=== PATIENT | male | born 1965 ===

== ENCOUNTER 2016-12-11 19:08 | Emergency (ER) | payer SELFPAY ==
[2016-12-11 19:42] VITALS: BP 122/83; PULSE 86; RESP 16; TEMP 98.4; O2SAT 95
--- NOTE | 2016-12-11 20:28 | C.PDOC ---
History Of Present Illness 51 year old male who presents to the ER seeking detox from ETOH. Crisis saw patient prior to my evaluation and informed patient that no beds are available. Patient left ER prior to my evaluation. Time Seen by Provider: 12/11/16 20:27 Chief Complaint (Nursing): Psychiatric Evaluation History Per: Other (Crisis) History/Exam Limitations: no limitations Onset/Duration Of Symptoms: Hrs Current Symptoms Are (Timing): Still Present Suicide/Self Injury Attempted (Context): None Modifying Factor(s): Alcohol Involuntary Hold By: None Recent travel outside of the [place]: No Past Medical History Reviewed: Historical Data, Nursing Documentation, Vital Signs Vital Signs: Last Vital Signs Temp 98.4 F 12/11/16 19:40 Pulse 86 12/11/16 19:40 Resp 16 12/11/16 19:40 BP 122/83 12/11/16 19:40 Pulse Ox 95 12/11/16 20:28 - Medical History PMH: No Chronic Diseases Surgical History: No Surg Hx Family History: States: Unknown Family Hx - Social History Hx Alcohol Use: Yes Hx Substance Use: No - Immunization History Hx Tetanus Toxoid Vaccination: No Hx Influenza Vaccination: No Hx Pneumococcal Vaccination: No Review Of Systems Review Of Systems: ROS cannot be obtained secondary to pt's inabilty to answer questions. Physical Exam - Physical Exam Additional Physical Exam Comments: Patient left prior to physical exam. ED Course And Treatment O2 Sat by Pulse Oximetry: 95 (Room air) Pulse Ox Interpretation: Normal Medical Decision Making Medical Decision Making: d/w Crisis, no detox beds available Crisis spoke w pt, will f/u as opt. Disposition Doctor Will See Patient In The: Office Counseled Patient/Family Regarding: Studies Performed, Diagnosis - Disposition Referrals: [facility] [Outside] [facility] [Outside] [facility] [Outside] [facility] [Outside] Disposition: HOME/ ROUTINE Disposition Time: 20:28 Condition: GOOD Additional Instructions: continue to follow-up as outpatient for detox programs/availability. Instructions: Abuse of Alcohol (ED) Forms: [facility] (Puerto Rican) - Clinical Impression Clinical Impression: Alcohol abuse - Scribe Statement The provider has reviewed the documentation as recorded by the Scribe Jerald Phan All medical record entries made by the Scribe were at my direction and personally dictated by me. I have reviewed the chart and agree that the record accurately reflects my personal performance of the history, physical exam, medical decision making, and the department course for this patient. I have also personally directed, reviewed, and agree with the discharge instructions and disposition.
== END 2016-12-11 20:32 | disposition home or self-care (01) ==
LOC: C.ER 19:08
DX: F10.10 Alcohol abuse, uncomplicated (principal)

== ENCOUNTER 2017-10-04 10:29 | Inpatient (IN) | payer MEDICAID, OTHER ==
[2017-10-04 10:33] VITALS: BMI 26.6
[2017-10-04 12:08] LABS: ALB/GLOB RATIO 1.4 (1.0-2.1); ALBUMIN 5.5 g/dL (3.5-5.0); ALT/SGPT 188 U/L (21-72); AST/SGOT 260 U/L (17-59); BLOOD UREA NITROGEN 8 mg/dL (9-20); CALCIUM 9.6 mg/dl (8.6-10.4); GFR AFRICAN-AMERICAN > 60; GFR NON-AFRICAN AMERICAN > 60
--- NOTE | 2017-10-04 12:16 | C.PDOC ---
History Of Present Illness 52 y/o male with a PMHx of alcohol abuse presents to the ED requesting alcohol detox. He admits to drinking daily, but denies alcohol use today. Patient currently complains of mild tremors. Otherwise he denies fever, vomiting, SOB, abdominal pain, or other physical complaints. He denies suicidal or homicidal ideations. Time Seen by Provider: 10/04/17 11:00 Chief Complaint (Nursing): Substance Abuse History Per: Patient History/Exam Limitations: no limitations Onset/Duration Of Symptoms: Hrs Current Symptoms Are (Timing): Still Present Modifying Factor(s): Alcohol Severity: Moderate Past Medical History Reviewed: Historical Data, Nursing Documentation, Vital Signs Vital Signs: Last Vital Signs Temp 98.2 F 10/08/17 15:30 Pulse 99 H 10/08/17 15:30 Resp 18 10/08/17 15:30 BP 136/97 H 10/08/17 15:30 Pulse Ox 98 10/08/17 15:30 - Medical History PMH: No Chronic Diseases Other PMH: alcohol dependence Surgical History: No Surg Hx Family History: States: No Known Family Hx - Social History Hx Tobacco Use: No Hx Alcohol Use: Yes (beer) Hx Substance Use: No - Immunization History Hx Tetanus Toxoid Vaccination: No Hx Influenza Vaccination: No Hx Pneumococcal Vaccination: No Review Of Systems Constitutional: Negative for: Fever Cardiovascular: Negative for: Chest Pain, Palpitations Respiratory: Negative for: Cough, Shortness of Breath Gastrointestinal: Negative for: Nausea, Vomiting, Abdominal Pain, Diarrhea Skin: Negative for: Rash Psych: Positive for: Withdrawal (tremors). Negative for: Suicidal ideation, Other (alcohol abuse) Physical Exam - Physical Exam Appears: Well, Non-toxic, No Acute Distress Skin: Normal Color, Warm, Dry Eye(s): bilateral: Normal Inspection Oral Mucosa: Moist Neck: Supple Cardiovascular: Rhythm Regular Respiratory: Normal Breath Sounds, No Rales, No Rhonchi, No Wheezing Gastrointestinal/Abdominal: Normal Exam, Bowel Sounds, Soft, No Tenderness, No Distention Extremity: Normal ROM, No Calf Tenderness, No Deformity, Other (mild tremors B/ L UEs) Pulses: Left Dorsalis Pedis: Normal, Right Dorsalis Pedis: Normal Neurological/Psych: Oriented x3 ED Course And Treatment - Laboratory Results Result Diagrams: 10/08/17 11:29 10/08/17 11:29 O2 Sat by Pulse Oximetry: 95 (RA) Pulse Ox Interpretation: Normal Progress Note: Blood work, UA, UDS ordered and reviewed. Patient given PO Librium. 13:31- Patient accepted by Dr. Darnell for alcohol detox admission. Reevaluation Time: 13:15 Reassessment Condition: Improved (Patient resting comfortably, no current tremors noted. Medically cleared) Disposition - Disposition Disposition: HOSPITALIZED Disposition Time: 13:31 Condition: STABLE - Clinical Impression Clinical Impression: Alcohol use disorder, severe, dependence - Scribe Statement The provider has reviewed the documentation as recorded by the Scribe (Dagmar Sparrow) Provider Attestation: All medical record entries made by the Scribe were at my direction and personally dictated by me. I have reviewed the chart and agree that the record accurately reflects my personal performance of the history, physical exam, medical decision making, and the department course for this patient. I have also personally directed, reviewed, and agree with the discharge instructions and disposition. Decision To Admit - Pt Status Changed To: Hospital Disposition Of: Inpatient - Admit Certification Admit to Inpatient:: After my assessment, the patient will require hospitalization for at least two midnights. This is because of the severity of symptoms shown, intensity of services needed, and/or the medical risk in this patient being treated as an outpatient. - InPatient: Physician Admission Certification: I certify that this patient requires 2 or more midnights of care for the following reason:: see notes - . Bed Request Type: Detox Admitting Physician: Selena Darnell Patient Diagnosis: Alcohol use disorder, severe, dependence
[2017-10-04 12:20] LABS: URINE BILIRUBIN NEGATIVE (NEGATIVE); URINE BLOOD 1+ (NEGATIVE); URINE CLARITY Clear (Clear); URINE COLOR Straw (YELLOW); URINE GLUCOSE (UA) NORMAL (Normal); URINE LEUKOCYTE ESTERASE NEG Leu/uL (Negative); URINE PROTEIN NEGATIVE (NEGATIVE); URINE UROBILINOGEN NORMAL mg/dL (0.2-1.0)
[2017-10-04 12:27] LABS: BASO # 0.1 K/uL (0.0-0.2); BASO % 2.8 % (0.0-2.0); EOS # 0.1 K/uL (0.0-0.7); EOS % 2.8 % (0.0-4.0); HEMOGLOBIN 14.3 g/dL (12.0-18.0); LYMPH # 0.5 K/uL (1.0-4.3); LYMPH % 9.8 % (20.0-40.0); MEAN CELL VOLUME 100.6 fL (80.0-94.0); MEAN CORPUSCULAR HEMOGLOBIN 34.2 pg (27.0-31.0); MEAN PLATELET VOLUME 9.4 fL (7.2-11.7); MONO # 0.7 K/uL (0.0-0.8); MONO % 15.5 % (0.0-10.0); NEUT # 3.2 K/uL (1.8-7.0); NEUT % 69.1 % (50.0-75.0); NRBC % 0.1 % (0.0-2.0); RBC 4.18 Mil/uL (4.40-5.90); RED CELL DISTRIBUTION WIDTH 13.9 % (11.5-14.5); WHITE BLOOD COUNT 4.7 K/uL (4.8-10.8)
[2017-10-04 12:30] LABS: PLATELET COUNT 113 K/uL (130-400)
[2017-10-04 12:33] LABS: BARBITURATES, UR NEGATIVE (NEGATIVE); BENZODIAZEPINES, UR NEGATIVE (NEGATIVE); OPIATES, UR NEGATIVE (NEGATIVE); PHENCYCLIDINE, UR NEGATIVE (NEGATIVE)
[2017-10-04 13:14] LABS: BANDS 1 % (0-2); EOSINOPHIL 2 % (0-4); LYMPHOCYTE 11 % (20-40); MONOCYTE 16 % (0-10); NEUTROPHIL 70 % (50-75); PLATELET ESTIMATE SLIGHTLY DECREASED (NORMAL); TOTAL CELLS COUNTED 100
--- NOTE | 2017-10-04 14:01 | PCM.BM ---
<Bryon Webster - Last Filed: 10/04/17 14:00> Treatment Plan Problems - Problems identified on initial assessmt potential for alcohol withdrawal Date Initiated: 10/04/17 Time Initiated: 14:00 Status: Active Treatment assets and liabiliti Patient Assests: cognitively intact Patient Liabilities: substance abuse - Milieu Protocol Maintain good personal hygiene: daily Encourage regular showers, daily Remind patient to perform daily oral care, daily Assist patient to perform ADL's Maintain personal safety: every shift Educate patient to report safety concerns to staff, every shift Monitor environment for contraband/sharps Medication safety: Monitor for expected outcome, potential side effects: every shift, Assess barriers to learning: every shift, Assess readiness for medication education: every shift <Selena Darnell - Last Filed: 10/04/17 14:34> - Diagnosis (1) Alcohol use disorder, severe, dependence Status: Acute Interventions: 10/04/17 14:34 * Assess 7x/week regarding severity of withdrawal * Educate regarding risks, benefits, side effects and alternatives of medications * Use Motivational Interviewing for abstinence * Use CBT for relapse prevention * Medication management for withdrawal symptoms * Encourage medication assisted treatment *
[2017-10-04] MEDS: Multiple Vitamins Tab PO SCH ×2 (14:34→14:37)
--- NOTE | 2017-10-04 14:37 | PCM.PSYCH ---
Initial Psychiatric Evaluation - Initial Psychiatric Evaluation Type of Admission: Voluntary Legal Status: Capacity Chief Complaint (in patient's own words): "Alcohol" History of Present Illness and Precipitating Events: The pt is seen, chart reviewed and case discussed. He is a 52 y/o LM, living with adult daughter and . He is here for alcohol detox, however despite his obvious tremors and other withdrawal sxs and bad liver, he tries to minimize his use and says he only drinks 2-3 drinks. Yet, in ED, he admitted that he was drinking 5 of the 24 oz beers plus unknown amount of liquor. He drinks for many years, but no DTs or seizures. No other drugs No psych sxs No known medical hx No family psych hx Current Medications: Active Medications Generic Name Dose Route Start Last Admin Trade Name Freq PRN Reason Stop Dose Admin Clonidine HCl 0.1 mg 10/04/17 14:20 Catapres PO Q4H PRN Symptoms of alcohol withdrawl Folic Acid 1 mg 10/04/17 14:30 Folic Acid PO DAILY KYLER Gabapentin 100 mg 10/04/17 18:00 Neurontin PO TID KYLER Hydroxyzine HCl 25 mg 10/04/17 14:21 Atarax PO Q4H PRN Anxiety Ibuprofen 400 mg 10/04/17 14:21 Motrin Tab PO Q6H PRN Pain, moderate (4-7) Lorazepam 1 mg 10/04/17 14:20 Ativan PO Q4H PRN Symptoms of alcohol withdrawl Lorazepam 2 mg 10/04/17 15:00 Ativan PO 10/09/17 14:59 .TAPER KYLER Taper Multivitamins 1 tab 10/04/17 14:30 Hexavitamin PO DAILY KYLER Thiamine HCl 100 mg 10/04/17 14:30 Vitamin B1 Tab PO DAILY KYLER Trazodone HCl 50 mg 10/04/17 22:00 Desyrel PO HS PRN Insomnia Past Psychiatric History - Past Psychiatric History Previous Treatment History: None Pertinent Medical Hx (Current Medical&Sleep Prob, Allergies): Allergies Allergy/AdvReac Type Severity Reaction Status Date / Time No Known Allergies Allergy Verified 10/04/17 10:32 No Known Home Med 12/11/16 Review of Systems - Neurological Neurological: Tremor, Weakness - Psychiatric Psychiatric: Abnormal Sleep Pattern, Anxiety, Difficulty Concentrating. absent : Hallucinations, Homicidal Ideation, Paranoia, Suicidal Ideation Mental Status Examination - Personal Presentation Personal Presentation: Looks stated age - Affect Affect: Constricted - Motor Activity Motor Activity: Calm - Reliability in Providing Information Reliability in Providing Information: Good - Speech Speech: Organized - Mood Mood: Anxious - Formal Thought Process Formal Thought Process: No Impairment - Cognitive Functions Orientation: Person, Place, Situation, Time Sensorium: Alert Attention/Concentration: Easily distracted Estimate of Intelligence: Average Judgement: Intact, as evidence by: Insight regarding need for hospitalization Memory: Recent intact, as evidence by: Ability to recall events of the day, Remote intact, as evidenced by: Abilit to recall sig. life events - Risk Risk: Withdrawal, Diminished functioning - Strength & Assets Inventory Strength & Assets Inventory: Family support, Cooperative DSM 5 DX - DSM 5 DSM 5 Diagnosis: Alcohol withdrawal Alcohol use d/o- severe - Recommended/Plan of Treatment Treatment Recommendations and Plan of Treatment: Taper with ativan due to elevated LFTs Gabapentin for augmentation As needed medications All risks, benefits and alternatives of the meds discussed, and the pt agreed and understood. Attend groups and activities Supportive therapy and psychoeducation [place] for abstinence CBT for relapse prevention Encourage MAT Refer to rehab or IOP, and self-help groups 34 min Projected ELOS: 5-6 days Prognosis: good with treatment - Smoking Cessation Smoking Cessation Initiated: No Reason for not providing: non-smoker
[2017-10-05 08:37] LABS: ALB/GLOB RATIO 1.4 (1.0-2.1); ALT/SGPT 149 U/L (21-72); AST/SGOT 179 U/L (17-59); BLOOD UREA NITROGEN 11 mg/dL (9-20); CALCIUM 10.2 mg/dl (8.6-10.4); GFR AFRICAN-AMERICAN > 60; GFR NON-AFRICAN AMERICAN > 60
[2017-10-05] MEDS: Multiple Vitamins Tab PO SCH (10:31)
--- NOTE | 2017-10-05 13:54 | PCM.PYCHPN ---
Psychiatric Progress Note - Psychiatric Progress Note Patient seen today, length of contact: 16 min Patient Chief Complaint: "Tremors" Problems Identified/Issues Discussed: The pt is seen, chart reviewed, case discussed with staff. The pt is compliant with medications and reports no side-effects. Symptoms are improving but needs more time to stabilize. After care discussed, support and psychoeducation given. Medication Change: Yes (detox changes daily) Medical Record Reviewed: Yes Mental Status Examination - Cognitive Function Orientation: Person, Place, Situation, Time Memory: Intact Attention: WNL Concentration: Poor Association: WNL Fund of Knowledge: WNL - Mood Mood: Anxious - Affect Affect: Constricted - Speech Speech: Appropriate - Formal Thought Process Formal Thought Process: No Impairment - Suicidal Ideation Suicidal Ideation: No - Homicidal Ideation Homicidal Ideation: No Goal/Treatment Plan - Goal/Treatment Plan Need for Continued Stay: Discharge may exacerbated symptoms, Severe functional impairment Progress Toward Problem(s) and Goals/Treatment Plan: Taper with ativan due to elevated LFTs Gabapentin for augmentation As needed medications All risks, benefits and alternatives of the meds discussed, and the pt agreed and understood. Attend groups and activities Supportive therapy and psychoeducation [place] for abstinence CBT for relapse prevention Encourage MAT Refer to rehab or IOP, and self-help groups Estimated Date of D/C: 10/09/17
[2017-10-06] MEDS: Multiple Vitamins Tab PO SCH (09:24)
--- NOTE | 2017-10-06 17:19 | PCM.PYCHPN ---
Psychiatric Progress Note - Psychiatric Progress Note Patient seen today, length of contact: 15 minutes Patient Chief Complaint: I'm feeling better than before Problems Identified/Issues Discussed: Patient seen, chart reviewed, case discussed with the staff. Issues related to illness and treatment were discussed with the patient. Reported compliant with treatment with no adverse affects. Tolerating treatment very well. Patient reported feeling better. Aftercare discussed with the patient. Patient was awake alert oriented 3. At the time of evaluation, patient had no delusions, no auditory or visual hallucinations, no suicidal ideations or homicidal ideations. Medical Problems: None reported Diagnostic Results: Reviewed DSM 5 Symptoms Update: Improving with treatment Medication Change: No Medical Record Reviewed: Yes Mental Status Examination - Cognitive Function Orientation: Person, Place, Situation, Time Memory: Intact Attention: WNL Concentration: WNL Association: WNL Fund of Knowledge: [facility] Decription of patient's judgement and insights: Fair - Mood Mood: Anxious (Less than before) - Affect Affect: Other (Appropriate) - Speech Speech: Appropriate - Formal Thought Process Formal Thought Process: No Impairment Psychotic Thoughts and Behaviors: None - Suicidal Ideation Suicidal Ideation: No - Homicidal Ideation Homicidal Ideation: No Goal/Treatment Plan - Goal/Treatment Plan Need for Continued Stay: Remain at risks for inpatient hospitalization, Discharge may exacerbated symptoms, Severe functional impairment Progress Toward Problem(s) and Goals/Treatment Plan: Some improvement with treatment. Patient education. Supportive therapy. CBT for relapse prevention. [place] for abstinence. Continue treatment as before. Patient wants to go to [facility] for follow-up care after discharge from the hospital. Estimated Date of D/C: 10/09/17 - Smoking Cessation Smoking Cessation Initiated: No Reason for not providing: Doesn't smoke cigarettes
[2017-10-07 08:31] LABS: BASO # 0.1 K/uL (0.0-0.2); BASO % 2.6 % (0.0-2.0); EOS # 0.4 K/uL (0.0-0.7); EOS % 6.9 % (0.0-4.0); HEMOGLOBIN 13.8 g/dL (12.0-18.0); LYMPH % 18.5 % (20.0-40.0); MEAN CELL VOLUME 99.9 fL (80.0-94.0); MEAN CORPUSCULAR HEMOGLOBIN 34.1 pg (27.0-31.0); MEAN CORPUSCULAR HGB CONC 34.1 g/dL (33.0-37.0); MEAN PLATELET VOLUME 9.7 fL (7.2-11.7); MONO % 19.2 % (0.0-10.0); NEUT # 2.7 K/uL (1.8-7.0); NEUT % 52.8 % (50.0-75.0); NRBC % 0.1 % (0.0-2.0); RBC 4.06 Mil/uL (4.40-5.90); RED CELL DISTRIBUTION WIDTH 13.8 % (11.5-14.5); WHITE BLOOD COUNT 5.1 K/uL (4.8-10.8)
[2017-10-07 08:49] LABS: ALB/GLOB RATIO 1.5 (1.0-2.1); ALBUMIN 4.9 g/dL (3.5-5.0); ALT/SGPT 186 U/L (21-72); AST/SGOT 166 U/L (17-59); BLOOD UREA NITROGEN 11 mg/dL (9-20); CALCIUM 10.1 mg/dl (8.6-10.4); GFR AFRICAN-AMERICAN > 60; GFR NON-AFRICAN AMERICAN > 60
--- NOTE | 2017-10-07 09:31 | CP.PCM.CON ---
<Jimmy Glaser - Last Filed: 10/07/17 16:22> History of Present Illness - History of Present Illness History of Present Illness: Medicine Consult Note CC: ETOH withdrawal HPI: This 52 y/o male with a PMHx of ETOH abuse - presented to the ED on presents to the ED on 10/04/17 requesting alcohol detox. He admits to drinking daily, but denied alcohol use on that day. He complainted of mild tremors at that time, but otherwise denied any fever, vomiting, SOB, pain, or other complaints. He was not suicidal or homicidal. Medicine team was consulted on 10/07/17 due to morning halucination, where the patient thought he saw animals. Patient was seen in the detox unit, happily eating his breakfast. He conversed well with no slurring of his speech. Patient states that he feels better since being admitted, that his tremors were very severe upon presentation to the ED, and have now become very mild. He admits to mild nausea, but has not vomited in 1-2 days. He does report diarrhea, with last watery BM yesterday. Otherwise, he denies fever, chills, headache, chest pain, SOB, abdominal pain, constipation, LE swelling, or any additional acute complaints. He denies HI or SI. PMHx: ETOH abuse PSHx: none Meds: no home meds Allergies: NKDA FamHx: unknown SocHx: 5 x24oz beers every Sat/Sun for years; denies tobacco or illicit drug use ; lives with family; unemployed. PMD: Dr. Dejan Strong Review of Systems: -Gen: No fever, No chills, No headache, No lethargy, No weakness. -HEENT: No dizziness, No change in vision, No change in hearing, No sore throat , No dysphagia, No nasal congestion, No mucous. -Cardio: No chest pain, No palpitations, No lower extremity edema, No orthopnea. -Resp: No cough, No dyspnea, No hemoptysis, No wheezing, No pain on inspiration. -GI: No abdominal pain, +nausea, no vomiting, No diarrhea/constipation, No hematochezia, No hematemesis. -: No dysuria, No urinary freq, No incontinence, No hematuria, No change in urinary stream. -MSK: No back pain, No muscle weakness, No radiating pain. -Skin: No itching, No rash, No lesions. -Neuro: No confusion, No numbness, No tingling, No focal weakness, No radicular pain, No syncope. -Psych: No anxiety, No depression, No H/I, No S/I, No hallucinations. Past Patient History - Past Medical History & Family History Past Medical History?: No - Past Social History Smoking Status: Never Smoked - CARDIAC Hx Cardiac Disorders: No Hx Hypertension: No - PULMONARY Hx Tuberculosis: No - NEUROLOGICAL HX Cerebrovascular Accident: No Hx Seizures: No - HEMATOLOGICAL/ONCOLOGICAL Hx Cancer: No Hx Human Immunodeficiency Virus (HIV): No - MUSCULOSKELETAL/RHEUMATOLOGICAL Hx Falls: No - GENITOURINARY/GYNECOLOGICAL Hx Sexually Transmitted Disorders: No - PSYCHIATRIC Hx Substance Use: Yes - SURGICAL HISTORY Hx Surgeries: No - ANESTHESIA Hx Anesthesia: No Meds Allergies/Adverse Reactions: Allergies Allergy/AdvReac Type Severity Reaction Status Date / Time No Known Allergies Allergy Verified 10/04/17 10:32 - Medications Medications: Current Medications Clonidine HCl (Catapres) 0.1 mg PO Q4H PRN PRN Reason: Symptoms of alcohol withdrawl Last Admin: 10/06/17 17:06 Dose: 0.1 mg Folic Acid (Folic Acid) 1 mg PO DAILY [facility] Last Admin: 10/06/17 09:24 Dose: 1 mg Gabapentin (Neurontin) 100 mg PO TID [facility] Last Admin: 10/06/17 17:11 Dose: 100 mg Hydroxyzine HCl (Atarax) 25 mg PO Q4H PRN PRN Reason: Anxiety Last Admin: 10/05/17 22:00 Dose: 25 mg Ibuprofen (Motrin Tab) 400 mg PO Q6H PRN PRN Reason: Pain, moderate (4-7) Lorazepam (Ativan) 1 mg PO Q4H PRN PRN Reason: Symptoms of alcohol withdrawl Last Admin: 10/07/17 02:53 Dose: 1 mg Lorazepam (Ativan) 2 mg PO Q8H [facility] PRN Reason: Taper Stop: 10/09/17 14:59 Last Admin: 10/07/17 06:21 Dose: 2 mg Multivitamins (Hexavitamin) 1 tab PO DAILY [facility] Last Admin: 10/06/17 09:24 Dose: 1 tab Thiamine HCl (Vitamin B1 Tab) 100 mg PO DAILY [facility] Last Admin: 10/06/17 09:25 Dose: 100 mg Trazodone HCl (Desyrel) 50 mg PO HS PRN PRN Reason: Insomnia Last Admin: 10/06/17 22:02 Dose: 50 mg Physical Exam - Constitutional Appears: Well, Non-toxic, No Acute Distress, Unkempt - Head Exam Head Exam: ATRAUMATIC, NORMAL INSPECTION - Eye Exam Eye Exam: EOMI, Normal appearance Pupil Exam: NORMAL ACCOMODATION - ENT Exam ENT Exam: Mucous Membranes Moist (poor dentition noted) - Neck Exam Neck exam: Positive for: Normal Inspection - Respiratory Exam Respiratory Exam: Clear to Auscultation Bilateral, NORMAL BREATHING PATTERN. absent: Rhonchi, Wheezes - Cardiovascular Exam Cardiovascular Exam: Tachycardia, +S1, +S2. absent: JVD - GI/Abdominal Exam GI & Abdominal Exam: Normal Bowel Sounds, Soft. absent: Guarding, Organomegaly , Pulsatile Mass, Tenderness - Extremities Exam Extremities exam: Positive for: full ROM, normal inspection. Negative for: pedal edema, tenderness - Back Exam Back exam: NORMAL INSPECTION. absent: CVA tenderness (L), CVA tenderness (R) - Neurological Exam Neurological exam: Alert, CN II-XII Intact, Normal Gait, Oriented x3, Reflexes Normal Additional comments: - no asterixis - mild hand tremor noted with outstretched arms - Psychiatric Exam Psychiatric exam: Depressed, Flat Affect - Skin Skin Exam: Dry, Intact, Normal Color, Warm Results - Vital Signs Recent Vital Signs: Last Vital Signs Temp 97.4 F L 10/07/17 06:36 Pulse 113 H 10/07/17 06:36 Resp 20 10/07/17 06:36 BP 118/85 10/07/17 06:36 Pulse Ox 98 10/07/17 06:36 - Labs Result Diagrams: 10/07/17 08:19 10/07/17 08:19 Labs: Laboratory Results - last 24 hr 10/07/17 10/07/17 08:19 08:19 WBC 5.1 RBC 4.06 L Hgb 13.8 Hct 40.6 MCV 99.9 H MCH 34.1 H MCHC 34.1 RDW 13.8 Plt Count 150 MPV 9.7 Neut % (Auto) 52.8 Lymph % (Auto) 18.5 L Nicholas % (Auto) 19.2 H Eos % (Auto) 6.9 H Baso % (Auto) 2.6 H Neut # (Auto) 2.7 Lymph # (Auto) 1.0 Nicholas # (Auto) 1.0 H Eos # (Auto) 0.4 Baso # (Auto) 0.1 Sodium 141 Potassium 4.1 Chloride 100 Carbon Dioxide 29 Anion Gap 17 BUN 11 Creatinine 0.8 Est GFR ( Amer) > 60 Est GFR (Non-Af Amer) > 60 Random Glucose 90 Calcium 10.1 Phosphorus 4.6 H Magnesium 1.9 Total Bilirubin 1.2 AST 166 H ALT 186 H D Alkaline Phosphatase 118 Total Protein 8.3 Albumin 4.9 Globulin 3.3 Albumin/Globulin Ratio 1.5 Assessment & Plan - Assessment and Plan (Free Text) Assessment: ETOH Withdrawal / Abuse 10/07: Medicine team was consulted because patient experienced temporary hallucination in the morning of 10/07 where he saw animals. Patient is currently eating well, tolerating PO medications, and reports he feels better than when he was admitted. No SI/HI currently. Will continue to monitor. -admitted with ETOH level of 105 -pt drinks 5x 24oz beers per Sat/Sun for years -Taper with ativan due to elevated LFTs Catapres) 0.1 mg PO Q4H PRN Folic Acid) 1 mg PO DAILY [facility] Neurontin) 100 mg PO TID [facility] Atarax) 25 mg PO Q4H PRN Ativan) 1 mg PO Q4H PRN Ativan) 2 mg PO Q8H [facility] Hexavitamin) 1 tab PO DAILY [facility] Vitamin B1 Tab) 100 mg PO DAILY [facility] Transaminitis -AST 166/ ALT 186, downtrending -Continue to monitor. Diarrhea Imodium 2mg PO BID PRN Vitamin D Deficiency -Vit 16.4 -Start Ergocalciferol 50,000u q7d x 5mo Insomnia Continue Desyrel) 50 mg PO HS PRN Prophylaxis Motrin Tab) 400 mg PO Q6H PRN Heart healthy diet VTE prophylaxis c/i - patient ambulating well - Date & Time Date: 10/07/17 Time: 09:41 <Olya Banks - Last Filed: 10/07/17 20:44> Meds - Medications Medications: Current Medications Clonidine HCl (Catapres) 0.1 mg PO Q4H PRN PRN Reason: Symptoms of alcohol withdrawl Last Admin: 10/07/17 15:45 Dose: 0.1 mg Ergocalciferol (Drisdol 50,000 Intl Units Cap) 1 cap PO Q7D [facility] Last Admin: 10/07/17 10:14 Dose: 1 cap Folic Acid (Folic Acid) 1 mg PO DAILY [facility] Last Admin: 10/07/17 09:45 Dose: 1 mg Gabapentin (Neurontin) 100 mg PO TID [facility] Last Admin: 10/07/17 17:56 Dose: 100 mg Hydroxyzine HCl (Atarax) 25 mg PO Q4H PRN PRN Reason: Anxiety Last Admin: 10/05/17 22:00 Dose: 25 mg Ibuprofen (Motrin Tab) 400 mg PO Q6H PRN PRN Reason: Pain, moderate (4-7) Loperamide HCl (Imodium) 2 mg PO BID PRN PRN Reason: Diarrhea Lorazepam (Ativan) 1 mg PO Q4H PRN PRN Reason: Symptoms of alcohol withdrawl Last Admin: 10/07/17 18:12 Dose: 1 mg Lorazepam (Ativan) 2 mg PO Q12H [facility] PRN Reason: Taper Stop: 10/09/17 14:59 Last Admin: 10/07/17 14:38 Dose: 2 mg Multivitamins (Hexavitamin) 1 tab PO DAILY [facility] Last Admin: 10/07/17 09:45 Dose: 1 tab Thiamine HCl (Vitamin B1 Tab) 100 mg PO DAILY [facility] Last Admin: 10/07/17 09:45 Dose: 100 mg Trazodone HCl (Desyrel) 50 mg PO HS PRN PRN Reason: Insomnia Last Admin: 10/06/17 22:02 Dose: 50 mg Results - Vital Signs Recent Vital Signs: Last Vital Signs Temp 98 F 10/07/17 18:32 Pulse 104 H 10/07/17 18:32 Resp 18 10/07/17 18:32 BP 153/107 H 10/07/17 18:32 Pulse Ox 99 10/07/17 18:32 - Labs Result Diagrams: 10/07/17 08:19 10/07/17 08:19 Labs: Laboratory Results - last 24 hr 10/07/17 10/07/17 08:19 08:19 WBC 5.1 RBC 4.06 L Hgb 13.8 Hct 40.6 MCV 99.9 H MCH 34.1 H MCHC 34.1 RDW 13.8 Plt Count 150 MPV 9.7 Neut % (Auto) 52.8 Lymph % (Auto) 18.5 L Nicholas % (Auto) 19.2 H Eos % (Auto) 6.9 H Baso % (Auto) 2.6 H Neut # (Auto) 2.7 Lymph # (Auto) 1.0 Nicholas # (Auto) 1.0 H Eos # (Auto) 0.4 Baso # (Auto) 0.1 Differential Comment Sodium 141 Potassium 4.1 Chloride 100 Carbon Dioxide 29 Anion Gap 17 BUN 11 Creatinine 0.8 Est GFR ( Amer) > 60 Est GFR (Non-Af Amer) > 60 Random Glucose 90 Calcium 10.1 Phosphorus 4.6 H Magnesium 1.9 Total Bilirubin 1.2 AST 166 H ALT 186 H D Alkaline Phosphatase 118 Total Protein 8.3 Albumin 4.9 Globulin 3.3 Albumin/Globulin Ratio 1.5 Attending/Attestation - Attestation I have personally seen and examined this patient.: Yes I have fully participated in the care of the patient.: Yes I have reviewed all pertinent clinical information: Yes Notes (Text): Seen and examined by me consulted medicine team for hallucination(Brief) Patient is alert and oriented x3 .sitting and eating. Has tremor.Not hallucinating,ambulate steady. Vitals noted. Continue Ativan and clonidine PRN Plan discussed with his RN. Assessment and the plan discussed with the resident. john walker with the documentation
[2017-10-07] MEDS: Multiple Vitamins Tab PO SCH (09:45)
[2017-10-07] MEDS: Ergocalciferol 50,000 Intl Units Cap PO SCH (10:14)
--- NOTE | 2017-10-07 16:02 | PCM.PYCHPN ---
Psychiatric Progress Note - Psychiatric Progress Note Patient seen today, length of contact: 15 minutes Patient Chief Complaint: I'm feeling much better than before Problems Identified/Issues Discussed: Patient seen, chart reviewed, case discussed with the staff. Issues related to illness and treatment were discussed with the patient. Reported compliant with treatment with no adverse affects. Tolerating treatment very well. Patient reported feeling better. Patient was found to hallucinate this morning. A medical consult was called for possible DTs. Aftercare discussed with the patient. Patient was awake alert oriented 3. At the time of evaluation, patient had no delusions, no auditory or visual hallucinations, no suicidal ideations or homicidal ideations. Medical Problems: None reported Diagnostic Results: Reviewed DSM 5 Symptoms Update: Some improvement with treatment Medication Change: No Medical Record Reviewed: Yes Consults ordered or reviewed: Reviewed Mental Status Examination - Cognitive Function Orientation: Person, Place, Situation, Time Memory: Intact Attention: WNL Concentration: WNL Association: [facility] Fund of Knowledge: [facility] Decription of patient's judgement and insights: Fair - Mood Mood: Anxious (Less than before) - Affect Affect: Other (Appropriate) - Speech Speech: Appropriate - Formal Thought Process Formal Thought Process: No Impairment Psychotic Thoughts and Behaviors: None - Suicidal Ideation Suicidal Ideation: No - Homicidal Ideation Homicidal Ideation: No Goal/Treatment Plan - Goal/Treatment Plan Need for Continued Stay: Remain at risks for inpatient hospitalization, Discharge may exacerbated symptoms, Severe functional impairment Progress Toward Problem(s) and Goals/Treatment Plan: Some improvement with treatment. Patient education. Supportive therapy. CBT for relapse prevention. HI for abstinence. Close observation for DTs. Continue treatment as before. Patient wants to go to [facility] for follow-up care after discharge from the hospital. Estimated Date of D/C: 10/09/17 - Smoking Cessation Smoking Cessation Initiated: No
--- NOTE | 2017-10-08 07:34 | CP.PCM.PN ---
<Trinity Robert - Last Filed: 10/08/17 13:21> Subjective - Date & Time of Evaluation Date of Evaluation: 10/08/17 Time of Evaluation: 07:00 - Subjective Subjective: PGY2- progress note for Dr. Darby Patient seen and examined this morning and in no acute distress. As per nursing , patient was having hallucinations of bugs and animals overnight and was getting very agitated. This morning patient says he is no longer having any hallucinations. He knows he is in [place] in the hospital and that the year is 2017. He knows that he is speaking with a doctor. Patient was stating he wants to go home to see his family and then come back. I explained to him that he should stay and he agreed. He complains of mild low back pain that has been present since he came to the hospital. Patient is able to walk around with no dizziness or loss of balance. Objective - Vital Signs/Intake and Output Vital Signs (last 24 hours): Temp Pulse Resp BP Pulse Ox 98.5 F 74 18 132/92 H 98 10/08/17 06:38 10/08/17 06:38 10/08/17 06:38 10/08/17 06:38 10/08/17 06:38 - Medications Medications: Current Medications Clonidine HCl (Catapres) 0.1 mg PO Q4H PRN PRN Reason: Symptoms of alcohol withdrawl Last Admin: 10/07/17 15:45 Dose: 0.1 mg Ergocalciferol (Drisdol 50,000 Intl Units Cap) 1 cap PO Q7D [facility] Last Admin: 10/07/17 10:14 Dose: 1 cap Folic Acid (Folic Acid) 1 mg PO DAILY [facility] Last Admin: 10/07/17 09:45 Dose: 1 mg Gabapentin (Neurontin) 100 mg PO TID [facility] Last Admin: 10/07/17 17:56 Dose: 100 mg Hydroxyzine HCl (Atarax) 25 mg PO Q4H PRN PRN Reason: Anxiety Last Admin: 10/07/17 22:58 Dose: 25 mg Ibuprofen (Motrin Tab) 400 mg PO Q6H PRN PRN Reason: Pain, moderate (4-7) Loperamide HCl (Imodium) 2 mg PO BID PRN PRN Reason: Diarrhea Lorazepam (Ativan) 1 mg PO Q4H PRN PRN Reason: Symptoms of alcohol withdrawl Last Admin: 10/07/17 22:58 Dose: 1 mg Lorazepam (Ativan) 2 mg PO Q12H [facility] PRN Reason: Taper Stop: 10/09/17 14:59 Last Admin: 10/08/17 03:44 Dose: 2 mg Multivitamins (Hexavitamin) 1 tab PO DAILY [facility] Last Admin: 10/07/17 09:45 Dose: 1 tab Thiamine HCl (Vitamin B1 Tab) 100 mg PO DAILY [facility] Last Admin: 10/07/17 09:45 Dose: 100 mg Trazodone HCl (Desyrel) 50 mg PO HS PRN PRN Reason: Insomnia Last Admin: 10/07/17 22:58 Dose: 50 mg - Labs Labs: 10/07/17 08:19 10/07/17 08:19 - Constitutional Appears: Non-toxic, No Acute Distress, Unkempt - Head Exam Head Exam: ATRAUMATIC, NORMAL INSPECTION, NORMOCEPHALIC - Eye Exam Eye Exam: EOMI, Normal appearance Pupil Exam: NORMAL ACCOMODATION - ENT Exam ENT Exam: Mucous Membranes Moist - Neck Exam Neck Exam: Full ROM - Respiratory Exam Respiratory Exam: Clear to Ausculation Bilateral, NORMAL BREATHING PATTERN. absent: Rales, Rhonchi, Wheezes, Respiratory Distress, Stridor - Cardiovascular Exam Cardiovascular Exam: REGULAR RHYTHM, RRR, +S1, +S2 - GI/Abdominal Exam GI & Abdominal Exam: Soft, Normal Bowel Sounds. absent: Tenderness - Extremities Exam Extremities Exam: Normal Inspection. absent: Pedal Edema, Tenderness - Back Exam Back Exam: NORMAL INSPECTION, paraspinal tenderness (mild to palpation ). absent: rash noted - Neurological Exam Neurological Exam: Alert, Awake, CN II-XII Intact, Oriented x3 Additional comments: - no asterixis - mild hand tremor noted with outstretched arms - Psychiatric Exam Psychiatric exam: Depressed, Normal Affect - Skin Skin Exam: Intact, Normal Color, Warm Assessment and Plan - Assessment and Plan (Free Text) Assessment: ETOH Withdrawal / Abuse Patient had repeated episode of visual hallucinations overnight- possible element of underlying psych disorder? -admitted with ETOH level of 105 -pt drinks 5x 24oz beers per Sat/Sun for years -Taper with ativan due to elevated LFTs Catapres 0.1 mg PO Q4H PRN Folic Acid 1 mg PO DAILY [facility] Neurontin 100 mg PO TID [facility] Atarax 25 mg PO Q4H PRN Ativan 1 mg PO Q4H PRN Ativan 2 mg PO Q8H [facility] Hexavitamin 1 tab PO DAILY [facility] Vitamin B1 Tab 100 mg PO DAILY [facility] Transaminitis -AST 91/ALT 142 , downtrending -Continue to monitor. Diarrhea Imodium 2mg PO BID PRN Vitamin D Deficiency -Vit 16.4 -Start Ergocalciferol 50,000u q7d x 5mo Insomnia Continue Desyrel 50 mg PO HS PRN Prophylaxis Motrin Tab 400 mg PO Q6H PRN Heart healthy diet VTE prophylaxis c/i - patient ambulating well Dispo: Patient is medically stable, please reconsult if needed. <Jimmy Darby H - Last Filed: 10/08/17 17:08> Objective - Vital Signs/Intake and Output Vital Signs (last 24 hours): Temp Pulse Resp BP Pulse Ox 98.2 F 99 H 18 136/97 H 98 10/08/17 16:23 10/08/17 16:23 10/08/17 16:23 10/08/17 16:23 10/08/17 16:23 - Medications Medications: Current Medications Clonidine HCl (Catapres) 0.1 mg PO Q4H PRN PRN Reason: Symptoms of alcohol withdrawl Last Admin: 10/08/17 16:56 Dose: 0.1 mg Ergocalciferol (Drisdol 50,000 Intl Units Cap) 1 cap PO Q7D [facility] Last Admin: 10/08/17 09:27 Dose: 1 cap Folic Acid (Folic Acid) 1 mg PO DAILY [facility] Last Admin: 10/08/17 09:27 Dose: 1 mg Gabapentin (Neurontin) 100 mg PO TID [facility] Last Admin: 10/08/17 17:01 Dose: 100 mg Hydroxyzine HCl (Atarax) 25 mg PO Q4H PRN PRN Reason: Anxiety Last Admin: 10/08/17 16:57 Dose: 25 mg Ibuprofen (Motrin Tab) 400 mg PO Q6H PRN PRN Reason: Pain, moderate (4-7) Last Admin: 10/08/17 07:37 Dose: 400 mg Loperamide HCl (Imodium) 2 mg PO BID PRN PRN Reason: Diarrhea Lorazepam (Ativan) 1 mg PO Q4H PRN PRN Reason: Symptoms of alcohol withdrawl Last Admin: 10/07/17 22:58 Dose: 1 mg Lorazepam (Ativan) 2 mg PO Q24H [facility] PRN Reason: Taper Stop: 10/09/17 14:59 Last Admin: 10/08/17 14:42 Dose: 2 mg Multivitamins (Hexavitamin) 1 tab PO DAILY [facility] Last Admin: 10/08/17 09:27 Dose: 1 tab Thiamine HCl (Vitamin B1 Tab) 100 mg PO DAILY [facility] Last Admin: 10/08/17 09:27 Dose: 100 mg Trazodone HCl (Desyrel) 50 mg PO HS PRN PRN Reason: Insomnia Last Admin: 10/07/17 22:58 Dose: 50 mg - Labs Labs: 10/08/17 11:29 10/08/17 11:29 Attending/Attestation - Attestation I have personally seen and examined this patient.: Yes I have fully participated in the care of the patient.: Yes I have reviewed all pertinent clinical information, including history, physical exam and plan: Yes Notes (Text): 10/08/17 17:06 Medical attending: Patient was seen and examined by me and also with the medical residents We had him walk around and he was able to walk fine. When we saw him he aswered questions appropriately and did not have visual hallucinations. It maybe that he has some form of schizophrenia or possible really early Wernike or Korsakoff ecphalopathy. That being said he is currently stable at this time thank you Jimmy Darby
[2017-10-08] MEDS: Multiple Vitamins Tab PO SCH (09:27)
[2017-10-08] MEDS: Ergocalciferol 50,000 Intl Units Cap PO SCH (09:27)
--- NOTE | 2017-10-08 11:26 | PCM.PYCHPN ---
Psychiatric Progress Note - Psychiatric Progress Note Patient seen today, length of contact: 16 min Patient Chief Complaint: "Tremors" Problems Identified/Issues Discussed: The pt is seen, chart reviewed, case discussed with staff. The pt is compliant with medications and reports no side-effects. Symptoms are improving but needs more time to stabilize. After care discussed, support and psychoeducation given. Medication Change: Yes Medical Record Reviewed: Yes Mental Status Examination - Cognitive Function Orientation: Person, Place, Situation, Time Memory: Intact Attention: WNL Concentration: WNL Association: WNL Fund of Knowledge: WNL - Mood Mood: Anxious (Less than before) - Affect Affect: Other (Appropriate) - Speech Speech: Appropriate - Formal Thought Process Formal Thought Process: No Impairment - Suicidal Ideation Suicidal Ideation: No - Homicidal Ideation Homicidal Ideation: No Goal/Treatment Plan - Goal/Treatment Plan Need for Continued Stay: Remain at risks for inpatient hospitalization, Discharge may exacerbated symptoms, Severe functional impairment Progress Toward Problem(s) and Goals/Treatment Plan: Taper with ativan due to elevated LFTs Gabapentin for augmentation As needed medications All risks, benefits and alternatives of the meds discussed, and the pt agreed and understood. Attend groups and activities Supportive therapy and psychoeducation [place] for abstinence CBT for relapse prevention Encourage MAT Refer to rehab or IOP, and self-help groups Estimated Date of D/C: 10/09/17
[2017-10-08 11:35] LABS: BASO # 0.1 K/uL (0.0-0.2); BASO % 1.2 % (0.0-2.0); EOS # 0.3 K/uL (0.0-0.7); EOS % 3.6 % (0.0-4.0); HEMOGLOBIN 13.8 g/dL (12.0-18.0); LYMPH # 0.8 K/uL (1.0-4.3); LYMPH % 10.6 % (20.0-40.0); MEAN CELL VOLUME 100.1 fL (80.0-94.0); MEAN CORPUSCULAR HEMOGLOBIN 34.3 pg (27.0-31.0); MEAN CORPUSCULAR HGB CONC 34.3 g/dL (33.0-37.0); MEAN PLATELET VOLUME 9.9 fL (7.2-11.7); MONO # 1.2 K/uL (0.0-0.8); MONO % 15.5 % (0.0-10.0); NEUT # 5.2 K/uL (1.8-7.0); NEUT % 69.1 % (50.0-75.0); RBC 4.02 Mil/uL (4.40-5.90); RED CELL DISTRIBUTION WIDTH 13.8 % (11.5-14.5); WHITE BLOOD COUNT 7.5 K/uL (4.8-10.8)
[2017-10-08 11:48] LABS: ALB/GLOB RATIO 1.4 (1.0-2.1); ALT/SGPT 142 U/L (21-72); AST/SGOT 91 U/L (17-59); BLOOD UREA NITROGEN 15 mg/dL (9-20); CALCIUM 10.5 mg/dl (8.6-10.4); GFR AFRICAN-AMERICAN > 60; GFR NON-AFRICAN AMERICAN > 60
[2017-10-09] MEDS: Multiple Vitamins Tab PO SCH (09:22)
--- NOTE | 2017-10-09 12:02 | PCM.PYCHPN ---
Psychiatric Progress Note - Psychiatric Progress Note Patient seen today, length of contact: 16 min Patient Chief Complaint: "Tremors" Problems Identified/Issues Discussed: The pt is seen, chart reviewed, case discussed with staff. The pt is compliant with medications and reports no side-effects. Symptoms are improving but needs more time to stabilize. After care discussed, support and psychoeducation given. Medication Change: Yes Medical Record Reviewed: Yes Mental Status Examination - Cognitive Function Orientation: Person, Place, Situation, Time Memory: Intact Attention: WNL Concentration: WNL Association: WNL Fund of Knowledge: WNL - Mood Mood: Anxious (Less than before) - Affect Affect: Other (Appropriate) - Speech Speech: Appropriate - Formal Thought Process Formal Thought Process: No Impairment - Suicidal Ideation Suicidal Ideation: No - Homicidal Ideation Homicidal Ideation: No Goal/Treatment Plan - Goal/Treatment Plan Need for Continued Stay: Remain at risks for inpatient hospitalization, Discharge may exacerbated symptoms, Severe functional impairment Progress Toward Problem(s) and Goals/Treatment Plan: Taper with ativan due to elevated LFTs Gabapentin for augmentation As needed medications All risks, benefits and alternatives of the meds discussed, and the pt agreed and understood. Attend groups and activities Supportive therapy and psychoeducation [place] for abstinence CBT for relapse prevention Encourage MAT Refer to rehab or IOP, and self-help groups Estimated Date of D/C: 10/09/17
--- NOTE | 2017-10-10 08:35 | PCM.PYCHDC ---
Mental Status Examination - Mental Status Examination Orientation: Person, Place, Situation, Time Memory: Impaired Mood: Anxious Affect: Constricted Speech: Appropriate Attention: Poor Concentration: Poor Association: WNL Fund of Knowledge: Poor Formal Thought Process: No Impairment Suicidal Ideation: No Current Homicidal Ideation?: No Discharge Summary - Discharge Note Consultations:: List each consultation separately and include: 1. Reason for request. 2. Findings. 3. Follow-up Summary of Hospital Course include:: 1. Description of specific treatment plan utilized for patients during their course of treatmen. 2. Summarize the time- course for resolution of acute symptoms and/or regressed behaviors. 3. Describe issues identified and worked on during hospitalization. 4. Describe medication utilized. 5. Describe medical problems identified and treated. 6. Reassessment of suicide risk Summary of Hospital Course: The pt is seen, chart reviewed and case discussed. He is a 52 y/o LM, living with adult daughter and . He is here for alcohol detox, however despite his obvious tremors and other withdrawal sxs and bad liver, he tries to minimize his use and says he only drinks 2-3 drinks. Yet, in ED, he admitted that he was drinking 5 of the 24 oz beers plus unknown amount of liquor. He drinks for many years, but no DTs or seizures. No other drugs No psych sxs No known medical hx No family psych hx He will go to [facility] and AA. - Diagnosis (1) Alcohol use disorder, severe, dependence Current Visit: Yes Status: Acute - Final Diagnosis (DSM 5) Condition upon Discharge: STABLE Disposition: HOME/ ROUTINE Follow-up Treatment Plan: Taper with ativan due to elevated LFTs Gabapentin for augmentation As needed medications All risks, benefits and alternatives of the meds discussed, and the pt agreed and understood. Attend groups and activities Supportive therapy and psychoeducation [facility] for abstinence CBT for relapse prevention Encourage MAT Refer to rehab or IOP, and self-help groups
[2017-10-10] MEDS: Multiple Vitamins Tab PO SCH (09:53)
[2017-10-10 10:47] VITALS: BP 113/83; PULSE 97; RESP 20; TEMP 98.4; O2SAT 96
== END 2017-10-10 10:30 | disposition home or self-care (01) | DRG 751 ==
LOC: C.ER 10:29 → C.7D 13:31
PROVIDERS: ADMIT Psychiatry & Neurology Psychiatry; ATTEND Psychiatry & Neurology Psychiatry
PROC: HZ2ZZZZ Detoxification Services for Substance Abuse Treatment (ICD-10-PCS; principal; 2017-10-04)
PROC: HZ59ZZZ Individual Psychotherapy for Substance Abuse Treatment, Supportive (ICD-10-PCS; 2017-10-04)
PROC: HZ46ZZZ Group Counseling for Substance Abuse Treatment, Psychoeducation (ICD-10-PCS; 2017-10-04)
DX: F10.230 Alcohol dependence with withdrawal, uncomplicated (principal); E55.9 Vitamin D deficiency, unspecified; G47.00 Insomnia, unspecified; Y90.5 Blood alcohol level of 100-119 mg/100 ml; R79.89 Other specified abnormal findings of blood chemistry; R74.0 Nonspecific elevation of levels of transaminase and lactic acid dehydrogenase [LDH]; R19.7 Diarrhea, unspecified

== ENCOUNTER 2018-06-16 10:31 | Inpatient (IN) | payer MEDICAID, OTHER | END 2018-06-24 10:30 | disposition home or self-care (01) | DRG 772 | LOC: C.7D 06-20 21:48 → C.ER 10:31 → C.7D 22:15 | PROC: HZ42ZZZ Group Counseling for Substance Abuse Treatment, Cognitive-Behavioral (ICD-10-PCS; principal; 2018-06-16) | PROC: HZ2ZZZZ Detoxification Services for Substance Abuse Treatment (ICD-10-PCS; 2018-06-16) | PROC: HZ52ZZZ Individual Psychotherapy for Substance Abuse Treatment, Cognitive-Behavioral (ICD-10-PCS; 2018-06-16) | PROC: HZ59ZZZ Individual Psychotherapy for Substance Abuse Treatment, Supportive (ICD-10-PCS; 2018-06-16) | PROC: HZ56ZZZ Individual Psychotherapy for Substance Abuse Treatment, Psychoeducation (ICD-10-PCS; 2018-06-16) | PROC: HZ46ZZZ Group Counseling for Substance Abuse Treatment, Psychoeducation (ICD-10-PCS; 2018-06-16) | PROC: GZHZZZZ Group Psychotherapy (ICD-10-PCS; 2018-06-16) | PROC: GZ58ZZZ Individual Psychotherapy, Cognitive-Behavioral (ICD-10-PCS; 2018-06-16) | PROC: GZ56ZZZ Individual Psychotherapy, Supportive (ICD-10-PCS; 2018-06-16) | DX: F10.231 Alcohol dependence with withdrawal delirium (principal); F10.280 Alcohol dependence with alcohol-induced anxiety disorder; F32.9 Major depressive disorder, single episode, unspecified; F10.220 Alcohol dependence with intoxication, uncomplicated; Y90.8 Blood alcohol level of 240 mg/100 ml or more ==